=== PATIENT | female | born 1975 | race Caucasian/White ===

== ENCOUNTER 2017-03-09 16:22 | Emergency (ER) | payer OTHER ==
[~2017-03-09 16:22] MED LIST: BUSPAR 5MG TABLE5 MG PO; CIPRO500 MG PO; FLAGYL250 MG PO; GLUCOPHAGE 500500 MG PO; IBUPROFEN600 MG PO; MEDROL4 MG PO; NAPROXEN 250 M250 MG PO; OMEPRAZOLE40 MG PO; PROTONIX40 MG PO; SPIRONOLACTONE50 MG PO; TYLENOL 325MG325 MG PO
== END 2017-03-09 19:00 | disposition left against medical advice (07) ==
LOC: ER1 16:22
DX: Z53.21 Procedure and treatment not carried out due to patient leaving prior to being seen by health care provider (principal)
CPT/HCPCS: 87081; 87880

== ENCOUNTER → 2021-06-19 | Outpatient (CLI) | payer OTHER ==
[~2021-06-19] MED LIST changes: +BUSPIRONE HCL7.5 MG PO; +EPINEPHRIN0.3 MG/0.3 INJ; +GLIPIZIDE ER10 MG PO; +KEFLEX500 MG PO; +VENTOLIN HFA 66.7 GM INH; +VITAMIN D PO
[2021-06-19 12:11] LABS: BUN/CREATININE RATIO 18 (0-10)
== END ==
LOC: OPSV2 10:30
PROVIDERS: Anesthesiology
DX: Z01.812 Encounter for preprocedural laboratory examination (principal)
CPT/HCPCS: 36415; 80048

== ENCOUNTER → 2021-06-22 | Day surgery (SDC) | payer OTHER | END | disposition home or self-care (01) | LOC: OR 06:20 | DX: J38.1 Polyp of vocal cord and larynx (principal); J38.2 Nodules of vocal cords; J38.3 Other diseases of vocal cords; J37.0 Chronic laryngitis; J38.4 Edema of larynx; J31.0 Chronic rhinitis; K21.9 Gastro-esophageal reflux disease without esophagitis; E11.9 Type 2 diabetes mellitus without complications; J44.9 Chronic obstructive pulmonary disease, unspecified; F41.9 Anxiety disorder, unspecified; Z87.891 Personal history of nicotine dependence; Z91.013 Allergy to seafood; Z88.0 Allergy status to penicillin; Z88.8 Allergy status to other drugs, medicaments and biological substances; Z79.84 Long term (current) use of oral hypoglycemic drugs; Z79.899 Other long term (current) drug therapy | CPT/HCPCS: 82962; 84703; J1100; J2001; J2250; J2405; J2704; J2710; J3010; J7120 ==